=== PATIENT | female | born 1940 | race American Indian/Alaskan Native ===

== ENCOUNTER 2017-02-09 08:39 | Outpatient (CLI) | payer MEDICARE ==
--- NOTE | 2017-02-09 15:12 | Mammography Report ---
BILATERAL DIGITAL SCREENING MAMMOGRAM with CAD : 02/09/17 08:39:00 CLINICAL: Routine screening. COMPARISON:01/16/16 FINDINGS: The breasts are heterogeneously dense, which may obscure small masses. No mass, architectural distortion or suspicious calcifications. IMPRESSION: No mammographic evidence of malignancy. BI-RADS CATEGORY: 2 -- Benign RECOMMENDATION: Routine mammographic screening in one year. COMMENT: Patient follow-up letters are generated by our [employer] application.
== END 2017-02-09 08:40 | disposition home or self-care (01) ==
LOC: SPVWC 08:39
PROVIDERS: ATTEND Internal Medicine
DX: Z12.31 Encounter for screening mammogram for malignant neoplasm of breast (principal)
CPT/HCPCS: 77067; G0202

== ENCOUNTER 2018-03-17 07:53 | Outpatient (CLI) | payer MEDICARE ==
--- NOTE | 2018-03-17 13:28 | Mammography Report ---
BILATERAL DIGITAL SCREENING MAMMOGRAM with CAD : 03/17/18 07:53:00 CLINICAL: Routine screening. COMPARISON:02/09/17 FINDINGS: The breasts are heterogeneously dense, which may obscure small masses.A few bilateral benign calcifications. No mass, architectural distortion or suspicious calcifications. IMPRESSION: No mammographic evidence of malignancy. BI-RADS CATEGORY: 2 -- Benign RECOMMENDATION: Routine mammographic screening in one year. COMMENT: Patient follow-up letters are generated by our [employer] application.
== END 2018-03-17 07:54 | disposition home or self-care (01) ==
LOC: SPVWC 07:53
PROVIDERS: ATTEND Internal Medicine
DX: Z12.31 Encounter for screening mammogram for malignant neoplasm of breast (principal); I10 Essential (primary) hypertension; E11.9 Type 2 diabetes mellitus without complications
CPT/HCPCS: 77067

== ENCOUNTER 2019-04-02 11:47 | Outpatient (CLI) | payer MEDICARE ==
--- NOTE | 2019-04-02 16:24 | Mammography Report ---
DIGITAL SCREENING MAMMOGRAM WITH CAD, 04/02/2019 INDICATION: Routine screening mammography. TECHNIQUE: Digital bilateral 2D mammography was obtained in the craniocaudal and mediolateral obliq ue projections. This examination was interpreted with the benefit of Computer-Aided Detection analysi s. COMPARISON: 03/17/2018 FINDINGS: Breast Density: The breasts are heterogeneously dense, which may obscure small masses. There is no evidence of dominant mass, suspicious calcifications or architectural distortion in eithe r breast. IMPRESSION: No mammographic evidence of malignancy. Follow up recommendation: Routine yearly BI-RADS Category 2: Benign. A "normal" or negative report should not discourage follow up or biopsy of a clinically significant f inding. A written summary of these findings will be mailed to the patient. The patient will be entered into a mammography reporting system which will generate a reminder letter for the patient's next appointmen t at the appropriate interval. The [employer] recommends yearly mammograms starting at age 40 and continuing as l valerie as a woman is in good health. Breast MRI is recommended for women with an approximate 20-25% or greater lifetime risk of breast cancer, including women with a strong family history of breast or ova segun cancer or who have been treated for Hodgkin's disease. Signer Name: Herbert Ward MD Signed: 04/02/2019 4:20 PM Workstation Name: [id number]
== END 2019-04-02 11:48 | disposition home or self-care (01) ==
LOC: SPVWC 11:47
PROVIDERS: ATTEND Internal Medicine
DX: Z12.31 Encounter for screening mammogram for malignant neoplasm of breast (principal); I10 Essential (primary) hypertension; E11.9 Type 2 diabetes mellitus without complications; I48.91 Unspecified atrial fibrillation
CPT/HCPCS: 77067

== ENCOUNTER 2020-04-09 09:23 | Outpatient (CLI) | payer MEDICARE ==
--- NOTE | 2020-04-09 11:21 | Mammography Report ---
BILATERAL DIGITAL SCREENING MAMMOGRAM WITH CAD HISTORY: SCREENING MAMMO TECHNIQUE: Routine digital mammographic imaging performed. This examination was interpreted with pia johnson benefit of Computer-aided Detection analysis. COMPARISON: 04/02/2019, 03/17/2018, 02/09/2017 FINDINGS: Breast Density: scattered fibroglandular appearance of the breast tissue. Digital CC and MLO views demonstrate no mammographic evidence of malignancy. IMPRESSION: No mammographic evidence of malignancy. If the clinical examination remains stable, recommend bilate ral mammogram in approximately one year. BIRADS 1: Negative. FURTHER INFORMATION: According to the [employer], yearly mammograms are recommend ed starting at age 40 and continuing as long as a woman is in good health. Clinical Breast Exams shou ld be part of a periodic health exam-about every 3 years for women in their 20s and 30s and every yea r for women 40 and over. Breast self exam is an option for women starting in their 20s. Any breast ch charan noted on a breast self exam should be reported promptly to the patient's healthcare provider. Br east MRI is recommended for women with an approximately 20-25% or greater lifetime risk of breast can cer, including women with a strong family history of breast or ovarian cancer and women who have been treated for Hodgkin's disease. A negative Mammography report should not discourage follow up or biopsy of a clinically significant f inding and/or abnormality. Dense breast tissue may obscure small neoplasms. The patient will be entered into a reminder system with a target due date for the next screening mamm ogram. Signer Name: Michael Archuleta MD Signed: 04/09/2020 11:16 AM Workstation Name: [id number]
== END 2020-04-09 09:24 | disposition home or self-care (01) ==
LOC: SPVWC 09:23
PROVIDERS: ATTEND Internal Medicine
DX: Z12.31 Encounter for screening mammogram for malignant neoplasm of breast (principal)
CPT/HCPCS: 77067

== ENCOUNTER 2021-04-10 09:09 | Outpatient (CLI) | payer MEDICARE | END 2021-04-10 09:10 | disposition home or self-care (01) | LOC: SPVWC 09:09 | PROVIDERS: ATTEND Internal Medicine | DX: Z12.31 Encounter for screening mammogram for malignant neoplasm of breast (principal) | CPT/HCPCS: 77067 ==

== ENCOUNTER 2021-12-01 10:49 | Outpatient (CLI) | payer MEDICARE ==
[2021-12-01 12:18] LABS: Blood Urea Nitrogen 12 mg/dL (7-17)
--- NOTE | 2021-12-01 13:30 | Cat Scan Report ---
CTA CHEST WITH IV CONTRAST INDICATION: E78.5 HYPERLIPIDEMIA, shortness of breath, chest pain CONTRAST: 80 cc Omnipaque 350 IV COMPARISON: 01/25/2018 Three-plane MIP reconstructions were produced. All CT scans at this location are performed using CT d ose reduction for ALARA by means of automated exposure control. FINDINGS: No significant axillary or chest wall lesions. No mediastinal or hilar masses. Mild coronar y artery calcifications. No obvious endobronchial lesions. No pleural effusions. No pneumothorax or p neumomediastinum. Mild areas of scarring and atelectasis noted bilaterally but no obvious pneumonic t ype infiltrate. No pulmonary nodules or masses. Views of the upper abdomen show unchanged small probable cyst in the upper pole the right kidney mild fatty infiltration of the liver. Aorta shows no aneurysmal dilatation or evidence of dissection. Major branches show good filling. Mil d atherosclerotic changes seen. Good opacification of pulmonary arterial system. No evidence of pulmonary thromboembolism. Mild artif act is seen in some smaller lower lobe arteries. IMPRESSION: No significant acute abnormalities are seen Signer Name: Neville Alexander MD Signed: 12/01/2021 1:25 PM Workstation Name: [id number]
== END 2021-12-01 10:50 | disposition home or self-care (01) ==
LOC: CT 10:49 → LAB 10:49 → CT 10:50
PROVIDERS: ATTEND Internal Medicine Cardiovascular Disease
DX: J98.11 Atelectasis (principal); I10 Essential (primary) hypertension; I49.5 Sick sinus syndrome; I48.0 Paroxysmal atrial fibrillation; E78.5 Hyperlipidemia, unspecified; I25.10 Atherosclerotic heart disease of native coronary artery without angina pectoris; K76.0 Fatty (change of) liver, not elsewhere classified; I70.0 Atherosclerosis of aorta
CPT/HCPCS: 36415; 71275; 82565; 84520; Q9967